=== PATIENT | male | born 1970 | race Caucasian/White ===

== ENCOUNTER → 2019-07-28 10:48 | Outpatient (CLI) | payer OTHER, SELFPAY ==
--- NOTE | 2019-07-28 11:17 | ECG_ITS ---
APPROVED REPORT Exam: Resting ECG HR:55 bpm ECG Measurements Heart Rate 55 AXES QRSd 98 QRS -8 QT 382 T -11 QTc 365 <Conclusion> Atrial fibrillation with slow ventricular response Poor R Wave Progression Abnormal ECG Electronically signed by : Renato Elias, 07/28/2019 11:43:02
--- NOTE | 2019-07-28 11:18 | XR_ITS ---
PROCEDURE: XR CHEST 2V CLINICAL HISTORY: HTN, PREOP COMPARISON: No exams were available for comparison FINDINGS: There is cardiomegaly without failure. He nodules present in the right lung base may be due to a calcified granuloma. The remaining lungs are clear. No acute bony findings. IMPRESSION: Cardiomegaly. No acute finding. Probable granuloma right lung base which may be confirmed with follow-up Dictated by: Jonathon Best MD 07/28/2019 12:15 Electronically signed by Jonathon Best MD in [place] 07/28/2019 12:15
[2019-07-28 11:23] LABS: Basophils % 0.5 % (0.1-2.0); Eosinophils # 0.2 K/mm3 (0.0-0.4); Eosinophils % 3.2 % (0.1-12.0); Hematocrit 41.5 % (42.0-52.0); Hemoglobin 12.6 g/dL (14.1-18.0); Lymphocytes # 1.4 K/mm3 (0.7-4.5); Lymphocytes % 19.1 % (10-50); Mean Corpuscular HGB Conc 30.4 g/dL (31.8-35.4); Mean Corpuscular Hemoglobin 29.9 pg (27.0-31.2); Mean Corpuscular Volume 98.3 fl (80-94); Mean Platelet Volume 8.8 fl (7.4-10.4); Monocytes # 0.5 K/mm3 (0.1-1.0); Monocytes % 6.3 % (1.7-9.3); Neutrophils # 5.1 K/mm3 (1.8-7.8); Neutrophils % 70.9 % (37.0-80.0); Platelet Count 216 K/mm3 (142-424); Red Blood Count 4.22 M/mm3 (4.60-6.20); Red Cell Distribution Width 15.3 % (11.5-17.5); White Blood Count 7.2 K/mm3 (4.8-10.8)
[2019-07-28 12:41] LABS: Hemoglobin A1C 6.7 % (0.0-7.0)
[2019-07-28 13:08] LABS: Anion Gap 10.8 mEq/L (5-15); Blood Urea Nitrogen 20 mg/dL (7-18); Calcium 8.8 mg/dL (8.5-10.1); Carbon Dioxide 31 mmol/L (21.0-32.0); Chloride 101 mmol/L (98-107); Creatinine,Serum 0.94 mg/dL (0.70-1.30); Estimated Glomerular Filt Rate 85 ml/min (>60); GFR (African American) 103 ML/MIN (>60); Glucose 159 mg/dL (74-106); Potassium 3.8 mmoL/L (3.5-5.1); Sodium 139 mmol/L (136-145)
== END ==
PROVIDERS: Visit Provider Orthopaedic Surgery
DX: Z01.818 Encounter for other preprocedural examination (principal); S82.864A Nondisplaced Maisonneuve's fracture of right leg, initial encounter for closed fracture
CPT/HCPCS: 36415; 71046; 80048; 83036; 85025; 93005

== ENCOUNTER → 2019-07-29 15:17 | Outpatient (CLI) | payer OTHER, SELFPAY ==
--- NOTE | 2019-07-29 15:20 | CA_ITS ---
APPROVED REPORT EXAM: Comprehensive 2D, Doppler, and color-flow Echocardiogram Internet Consultant: Lore Lopez RVT Ht: 6 ft 0 in Wt: 350lbs BSA: 2.70 BP: 113/63 mmHg Indications: Atrial Fibrillation, Diabetes, Hypertension,Pre-op ankle surgery 2D Dimensions LVOT 2.70 cm (M/F) 1.5-2.5 M-Mode Dimensions RVDd 2.00 cm (0.9-2.6) LA Diam 5.40 cm (1.9-4.0) LVDd 5.80 cm (3.5-5.7) Ao Diam 2.80 cm (2.0-3.7) LVDs 4.90 cm (3.5-5.7) AV Cusp 2.50 cm (1.5-2.6) IVSd 1.70 cm (0.6-1.1) PWd 1.00 cm (0.6-1.1) EF (Teich) 46.90% FS 24.40% EDV (Teich) 326.00 mL ESV (Teich) 173.00 mL LV Diastology MED E' 6.24 (< 7 cm/sec) LAT E' 18.60 (<10 cm/sec) Aortic Valve AoV Peak [place]. 95.30 (50-130 cm/s) AO Peak GR. 4.00 mmHg Pulmonary Valve PA Accel Time 162.00 (>120 msec) Tricuspid Valve TR P. Velocity 265.00 cm/s Left Ventricle Left atrium is mildly enlarged, left ventricle is mildly dilated, there is borderline left ventricular systolic function, visually estimated ejection fraction 45 to 50% with no regional wall motion abnormality, endocardial surfaces are poorly visualized, diastolic parameters are inconclusive. Right Ventricle Right atrium and right ventricle are normal size and contractility. Aortic Valve Aortic valve is minimally thickened and fibrosed. There is no aortic stenosis aortic insufficiency. Mitral Valve Mitral valve is grossly normal, there is mild mitral regurgitation. Tricuspid Valve Tricuspid valve is grossly normal, there is mild tricuspid regurgitation. Pulmonic Valve Pulmonic valve is poorly visualized. Great Vessels Aortic root is normal size. Pericardium No significant pericardial effusion noted. Conclusion 1. Mildly enlarged left atrium, mildly dilated left ventricle, borderline left ventricular systolic function, visually estimated ejection fraction 45 to 50% with no regional wall motion abnormality. Endocardial surfaces are poorly visualized. 2. Mild mitral and tricuspid regurgitation. 3. No significant pericardial effusion noted. Electronically signed by : Nick Atwood, 07/30/2019 11:06:31
== END ==
PROVIDERS: PCP Internal Medicine; Visit Provider Internal Medicine Cardiovascular Disease
DX: I48.91 Unspecified atrial fibrillation (principal)
CPT/HCPCS: 93306

== ENCOUNTER → 2019-08-11 11:56 | Outpatient (CLI) | payer OTHER, SELFPAY ==
--- NOTE | 2019-08-11 12:00 | XR_ITS ---
PROCEDURE: XR ANKLE RT MIN 3V CLINICAL INDICATION: sp closed reduction rt ankle; cast applied Follow-up closed reduction COMPARISON: XR ANKLE RT 2V from 07/30/2019 FINDINGS: Status post syndesmosis repair of the distal tib fib with 2 anchors in the distal tibia with translucent fixators attached to anchors within the distal fibula. There remains good alignment. The ankle mortise is preserved. Studies obtained through a cast. IMPRESSION: No change status post syndesmosis repair with good alignment Dictated by: Jonathon Best MD 08/11/2019 17:30 Electronically signed by Jonathon Best MD in [place] 08/11/2019 17:30
--- NOTE | 2019-08-11 12:00 | XR_ITS ---
PROCEDURE: XR TIBIA FIBULA RT 2V CLINICAL INDICATION: cast applied; surgery follow up Follow-up surgery/ORIF COMPARISON: XR TIBIA FIBULA RT 2V from 07/27/2019 XR ANKLE RT MIN 3V from 07/27/2019 XR ANKLE RT MIN 3V from 08/11/2019 FINDINGS: Status post syndesmosis repair of the distal tib fib with 2 anchors in the distal tibia with translucent fixators attached to anchors within the distal fibula. There remains good alignment. The ankle mortise is preserved. Studies obtained through a cast.. Mild osteoarthritic changes are present at the knee. Oblique fracture is present involving the proximal shaft of the fibula with good alignment unchanged. No significant callus formation. The posterior distal tibial fracture is once again noted nondisplaced and somewhat less apparent. IMPRESSION: No change status post syndesmosis repair with good alignment Good alignment proximal fibular fracture and posterior distal tibial fracture Dictated by: Jonathon Best MD 08/11/2019 17:36 Electronically signed by Jonathon Best MD in [place] 08/11/2019 17:36
== END ==
PROVIDERS: PCP Internal Medicine; Visit Provider Orthopaedic Surgery
DX: Z48.89 Encounter for other specified surgical aftercare (principal); S82.861A Displaced Maisonneuve's fracture of right leg, initial encounter for closed fracture
CPT/HCPCS: 73590; 73610

== ENCOUNTER → 2019-08-19 11:19 | Outpatient (CLI) | payer OTHER, BC, SELFPAY ==
[2019-08-19 13:32] LABS: Alanine Aminotransferase 28 U/L (12-78); Albumin Level 3.6 gm/dL (3.4-5.0); Alkaline Phosphatase 58 U/L (46-116); Aspartate Amino Transferase 11 U/L (15-37); Bilirubin,Direct 0.1 mg/dL (0.0-0.2); Bilirubin,Indirect 0.3 mg/dL (0.0-0.9); Bilirubin,Total 0.4 mg/dL (0.2-1.0); Free Thyroxine Index 3.4 ug/dL (5.93-13.13); T4 (Thyroxine) 9.8 ug/dl (4.7-13.3); Thyroid Stimulating Hormone 3.25 uIU/ml (0.358-3.740); Total Protein,Serum 6.8 gm/dL (6.4-8.2); Triiodothryronine (T3) Uptake 35 % (31-39)
== END ==
PROVIDERS: Visit Provider Internal Medicine Cardiovascular Disease
DX: E11.9 Type 2 diabetes mellitus without complications (principal); I10 Essential (primary) hypertension; R94.31 Abnormal electrocardiogram [ECG] [EKG]; S82.864D Nondisplaced Maisonneuve's fracture of right leg, subsequent encounter for closed fracture with routine healing; Z79.899 Other long term (current) drug therapy; Z79.84 Long term (current) use of oral hypoglycemic drugs
CPT/HCPCS: 36415; 80076; 84436; 84443; 84479

== ENCOUNTER → 2019-09-08 12:33 | Outpatient (CLI) | payer OTHER, SELFPAY ==
--- NOTE | 2019-09-08 12:38 | XR_ITS ---
PROCEDURE: XR ANKLE RT MIN 3V CLINICAL INDICATION: OUT OF CAST follow-up ORIF distal tib fib COMPARISON: XR ANKLE RT MIN 3V from 07/27/2019 XR TIBIA FIBULA RT 2V from 08/11/2019 FINDINGS: No change status post ORIF distal tib fib syndesmosis with fixating screws at the distal tib fib. The ankle mortise is preserved. There are small calcific densities at the tip of the medial and lateral malleolar region. IMPRESSION: Good alignment status post syndesmosis repair of the distal tib fib Dictated by: Jonathon Best MD 09/08/2019 16:16 Electronically signed by Jonathon Best MD in [place] 09/08/2019 16:16
== END ==
PROVIDERS: PCP Internal Medicine; Visit Provider Orthopaedic Surgery
DX: S82.863A Displaced Maisonneuve's fracture of unspecified leg, initial encounter for closed fracture (principal); Z09 Encounter for follow-up examination after completed treatment for conditions other than malignant neoplasm
CPT/HCPCS: 73610

== ENCOUNTER 2019-09-08 13:39 | Outpatient (RCR) | payer OTHER, BC, SELFPAY | END 2019-09-08 14:00 | disposition home or self-care (01) | LOC: PT 13:39 | PROVIDERS: Visit Provider Orthopaedic Surgery | DX: S82.864D Nondisplaced Maisonneuve's fracture of right leg, subsequent encounter for closed fracture with routine healing (principal) | CPT/HCPCS: 97760 ==

== ENCOUNTER → 2019-10-13 13:24 | Outpatient (CLI) | payer OTHER, BC, SELFPAY ==
--- NOTE | 2019-10-13 13:30 | XR_ITS ---
PROCEDURE: XR TIBIA FIBULA RT 2V CLINICAL INDICATION: Closed red/fix inferior tibiofibular syndesmosis Follow-up fracture COMPARISON: XR TIBIA FIBULA RT 2V from 07/27/2019 XR TIBIA FIBULA RT 2V from 08/11/2019 XR ANKLE RT MIN 3V from 08/11/2019 XR ANKLE RT MIN 3V from 10/13/2019 FINDINGS: Nondisplaced fracture of the proximal fibula once again noted. There is some minimal callus formation noted at the fracture site. Status post syndesmotic repair at the distal tib fib region. The ankle mortise is preserved. There are mild degenerative changes at the ankle joint. A small ossification is developing at the medial aspect of the ankle joint. Posterior distal tibial fracture noted with good alignment. The IMPRESSION: Good alignment status post closed reduction syndesmotic repair distal tib fib with healing fracture of the proximal fibula and posterior distal tibia Dictated by: Jonathon Best MD 10/13/2019 15:55 Electronically signed by Jonathon Best MD in [place] 10/13/2019 15:56
== END ==
PROVIDERS: PCP Internal Medicine; Visit Provider Orthopaedic Surgery
DX: Z09 Encounter for follow-up examination after completed treatment for conditions other than malignant neoplasm (principal); S82.864D Nondisplaced Maisonneuve's fracture of right leg, subsequent encounter for closed fracture with routine healing
CPT/HCPCS: 73590; 73610

== ENCOUNTER → 2019-11-24 13:06 | Outpatient (CLI) | payer OTHER, SELFPAY ==
--- NOTE | 2019-11-24 13:10 | XR_ITS ---
PROCEDURE: XR ANKLE RT MIN 3V CLINICAL INDICATION: sp closed reduction right ankle, dos 07/29/19 COMPARISON: XR ANKLE RT MIN 3V from 07/27/2019 XR ANKLE RT MIN 3V from 08/11/2019 XR ANKLE RT MIN 3V from 09/08/2019 FINDINGS: Reduction screws are seen in the distal tibia and fibula. There is no significant change. There is mild osteoarthritis at the tibiotalar joint space. Well-corticated bone densities are seen in the soft tissues inferior to the malleoli. There is mild bimalleolar soft tissue swelling. Degenerative plantar and dorsal posterior calcaneal spurring are noted his in IMPRESSION: Anatomical positioning post surgery. No acute findings. Dictated by: Cabrera Bentley 11/24/2019 13:49 Electronically signed by Cabrera Bentley in [place] 11/24/2019 13:49
== END ==
PROVIDERS: PCP Internal Medicine; Visit Provider Orthopaedic Surgery
DX: S82.864D Nondisplaced Maisonneuve's fracture of right leg, subsequent encounter for closed fracture with routine healing (principal); Z09 Encounter for follow-up examination after completed treatment for conditions other than malignant neoplasm
CPT/HCPCS: 73610

== ENCOUNTER 2020-01-10 16:00 | Outpatient (RCR) | payer OTHER, SELFPAY ==
--- NOTE | 2019-09-14 17:23 | HMH.PTOPEV ---
PT Outpatient Evaluation Rehab PT Outpatient Evaluation Start: 09/14/19 16:13 Freq: Status: Active Protocol: Document 09/14/19 16:54 [email or web address] (Rec: 09/14/19 17:22 PDESEROUX [id number]) Electronically Signed By Doug Otero, PT 09/14/19 16:54 Outpatient Therapy Subjective History Subjective History Pt. is a 49 year old male who presents to outpatient PT with complaints of subacute and constant R ankle/calf/ft. P! s/p closed reduction and fixation of inferior tibiafibular jt., RLE on 07/30/19. Pt. reports tripping/falling over a bucket and twisting his ankle during work on 07/27/19. Most recent diagnostic imaging indicates good alignment status post syndesmosis repair of the distal tib fib. Pt. RTMD 10/13. Pt. reports currently off occupational duties, return date TBD. Pt. also reports a Technical Staff Assistant appt. this coming (09/16/19). Current medications include Carvedilol , Losartan, Xarelto, Lisinopril, Apetamin, Glipizide, Pioglitazone, and Valsartan. PMH includes Afib, type II diabetes, HTN, Hyperlipidemia, tonsillectomy, and an adenectomy. Chief Complaint Pain,Stiff,Swelling Symptom Type Ache,Numbness Symptoms Relieved By Rest/Positioning,Ice,Brace/ Support,OTC Meds Symptoms Aggravated By Sitting,Standing,Physical Activity,Walking Prior Functional Limitations None Current Functional Limitations Housework,Dressing,Standing, Sitting,Squatting,Recreation Activity,Walking,Stairs, Balance Symptom Description Constant but Variable Level of pain today (0-10) 5 Pain scale - at its best (0-10) 4 Pain scale - at its worst (0-10) 7 Ankle/Foot Eval Gait Observation General Gait Pattern Observation Antalgic Gait,Wide Based Gait, Decrease Weight Bear (R), Decrease Stride Lngth (L) Assistive Device Ambulation Assistive Device
== END 2020-02-10 16:00 | disposition home or self-care (01) ==
LOC: PT.CARL 16:00
PROVIDERS: Visit Provider Orthopaedic Surgery
DX: S82.864D Nondisplaced Maisonneuve's fracture of right leg, subsequent encounter for closed fracture with routine healing (principal)
CPT/HCPCS: 97010; 97014; 97033; 97035; 97110; 97112; 97116; 97140; 97163; 97164; G0283

== ENCOUNTER → 2020-02-01 12:16 | Outpatient (CLI) | payer OTHER, BC, SELFPAY ==
--- NOTE | 2020-02-01 12:19 | XR_ITS ---
PROCEDURE: XR ANKLE RT MIN 3V CLINICAL INDICATION: sp ORIF RT ankle COMPARISON: XR ANKLE RT MIN 3V from 08/11/2019 XR ANKLE RT MIN 3V from 09/08/2019 XR ANKLE RT MIN 3V from 10/13/2019 FINDINGS: Postsurgical changes are again noted involving the distal tibia and fibula. There is no acute fracture or dislocation. Previously reported fractures of proximal fibula and posterior distal tibia peer to have healed. There are accessory ossicles inferior to the medial and lateral malleoli. Degenerative plantar calcaneal spurring is noted. There is soft tissue swelling over both malleoli. IMPRESSION: No acute findings. Dictated by: Cabrera Bentley 02/01/2020 12:50 Electronically signed by Cabrera Bentley in [facility] 02/01/2020 12:50
== END ==
PROVIDERS: PCP Internal Medicine; Visit Provider Orthopaedic Surgery
DX: Z09 Encounter for follow-up examination after completed treatment for conditions other than malignant neoplasm (principal); S82.86 Maisonneuve's fracture
CPT/HCPCS: 73610

== ENCOUNTER → 2020-02-03 14:02 | Outpatient (CLI) | payer BC, SELFPAY | PROVIDERS: PCP Internal Medicine; Visit Provider Internal Medicine | DX: I48.91 Unspecified atrial fibrillation (principal) | CPT/HCPCS: 93270 ==

== ENCOUNTER → 2020-02-08 12:27 | Outpatient (CLI) | payer BC, SELFPAY ==
--- NOTE | 2020-02-08 12:30 | XR_ITS ---
PROCEDURE: XR SHOULDER RT MIN 2V CLINICAL INDICATION: right shoulder pain COMPARISON: No exams were available for comparison FINDINGS: No fracture, dislocation, lytic change, or blastic change evident. No significant degenerative change. On the axillary view there is a small nodular density along the anterior aspect of the arm possibly due to artifact or a soft tissue calcification. IMPRESSION: No acute finding. Please see above for detail Dictated by: Jonathon Best MD 02/08/2020 13:22 Electronically signed by Jonathon Best MD in [facility] 02/08/2020 13:22
== END ==
PROVIDERS: PCP Internal Medicine; Visit Provider Orthopaedic Surgery
DX: M25.511 Pain in right shoulder (principal)
CPT/HCPCS: 73030

== ENCOUNTER → 2020-02-11 09:38 | Outpatient (CLI) | payer BC, SELFPAY ==
--- NOTE | 2020-02-11 09:38 | MR_ITS ---
PROCEDURE: MR SHOULDER RT WO CON CLINICAL INDICATION: right shoulder pain/ evaluate for rotator cuff tea Right shoulder pain, recent fall with injury and pain COMPARISON: XR SHOULDER RT MIN 2V from 02/08/2020 TECHNIQUE: Routine multiplanar multi echo sequences are performed without gadolinium enhancement. FINDINGS: Hypertrophic changes are present at the acromioclavicular joint with some impingement upon the musculotendinous junction of the supraspinatus tendon. There is moderate thickening with increased T2 signal involving the supraspinatus tendon consistent with tendinopathy/tendinosis. There is a small focal area of increased T2 signal distally and could be due to small tear. A complete tear is not identified. A full-thickness tear is not identified. The infraspinatus tendon has an unremarkable appearance as does the teres minor tendon. There is also thickening of the subscapularis tendon. The bicipital tendon appears to be in place. No obvious labral tear. Motion artifact obscures fine detail. Small amount of fluid is present in the subcoracoid region. IMPRESSION: Tendinopathy/tendinosis of the supraspinatus and subscapularis tendons with suspected partial tear of the distal aspect of the supraspinatus tendon. No evidence of full-thickness tear. There is mild impingement upon the musculotendinous junction of the supraspinatus tendon. Subcoracoid bursitis Dictated by: Jonathon Best MD 02/15/2020 11:02 Electronically signed by Jonathon Best MD in [facility] 02/15/2020 11:02
== END ==
PROVIDERS: PCP Internal Medicine; Visit Provider Orthopaedic Surgery
DX: M25.511 Pain in right shoulder (principal)
CPT/HCPCS: 73221

== ENCOUNTER → 2020-02-15 08:03 | Outpatient (CLI) | payer BC, SELFPAY | PROVIDERS: PCP Internal Medicine; Visit Provider Orthopaedic Surgery | DX: M25.511 Pain in right shoulder (principal) ==

== ENCOUNTER → 2020-02-21 09:09 | Outpatient (CLI) | payer BC, SELFPAY ==
--- NOTE | 2020-02-21 09:15 | CT_ITS ---
PROCEDURE: CT ABDOMEN PELVIS WO/W CON CLINICAL INDICATION: HEMATURIA COMPARISON: No exams were available for comparison TECHNIQUE: IV Contrast: 75ML OPTIRAY 350 Oral Contrast none Axial images obtained with sagittal and coronal reformats. All CT scans at the facility use one or more dose reduction, viz: automated exposure control, ma/kV adjustment per patient size (including targeted exams where dose is matched to indication, i.e. head), or iterative reconstruction technique. FINDINGS: LOWER THORAX: No acute finding ABDOMEN & PELVIS: The liver, spleen, pancreas, and gallbladder has an unremarkable appearance. There are bilateral adrenal nodules measuring 2.8 cm on the right and 2 cm on the left consistent with adenomas. There is a 7 mm stone in the upper pole of the right kidney.. There is a 5 x 2 mm stone in the proximal right ureter just distal to the ureteropelvic junction. There is no hydronephrosis. No renal mass. The urinary bladder has an unremarkable appearance. No intestinal obstruction or free air. No evidence of appendicitis or diverticulitis. There is scattered small mesenteric lymph nodes in the central mesenteries with faint increased density of the central mesenteric fat. Tiny umbilical hernia containing fat is noted. No acute bony anomalies. There are degenerative changes in the lumbar spine and there is mild sclerosis of the SI joints left greater than right. There is scattered small nodes in the inguinal region IMPRESSION: 1. Right nephrolithiasis. 5 x 2 mm nonobstructing proximal right ureteral stone just distal to the ureteropelvic junction 2. Talia mesenteries with scattered small mesenteric lymph nodes. This is nonspecific and could be seen with mesenteric adenitis/panniculitis, adjacent inflammation, idiopathic, cirrhosis, or neoplasm. Follow-up may confirm stability. 3. Bilateral adrenal adenomas Dictated by: Jonathon Best MD 02/22/2020 06:28 Electronically signed by Jonathon Best MD in [place] 02/22/2020 06:28
[2020-02-21 09:44] LABS: Chloride 98 mmol/L (98-107); Potassium 3.9 mmoL/L (3.5-5.1); Sodium 139 mmol/L (136-145)
[2020-02-21 09:47] LABS: Anion Gap 13.9 mEq/L (5-15); Blood Urea Nitrogen 18 mg/dl (9-20); Calcium 9.6 mg/dl (8.4-10.2); Carbon Dioxide 31 mmol/L (22.0-30.0); Estimated Glomerular Filt Rate 103 ml/min (>60); GFR (African American) 124 ML/MIN (>60); Glucose 167 mg/dl (74-100)
== END ==
PROVIDERS: PCP Internal Medicine; Visit Provider Internal Medicine
DX: I10 Essential (primary) hypertension; R31.9 Hematuria, unspecified
CPT/HCPCS: 36415; 74178; 80048; Q9967

== ENCOUNTER → 2020-03-13 14:16 | Outpatient (CLI) | payer BC, SELFPAY ==
--- NOTE | 2020-03-13 14:22 | CT_ITS ---
PROCEDURE: CT ABDOMEN PELVIS WO CON CLINICAL INDICATION: CALCULUS OF URETER Follow-up right ureteral stone COMPARISON: CT ABDOMEN PELVIS WO/W CON from 02/21/2020 TECHNIQUE: Axial images obtained with sagittal and coronal reformats. All CT scans at the facility use one or more dose reduction, viz: automated exposure control, ma/kV adjustment per patient size (including targeted exams where dose is matched to indication, i.e. head), or iterative reconstruction technique. FINDINGS: LOWER THORAX: No acute finding ABDOMEN & PELVIS: The liver, spleen, and pancreas have an unremarkable appearance. There is a small gallstone present. There is bilateral adrenal enlargement with a 2.7 cm nodule the both the right adrenal gland consistent with an adenoma and a 2 cm nodule of the left adrenal gland consistent with an adenoma. Right nephrolithiasis is once again noted with 2 small stones in the upper pole of the right kidney each measuring 4 mm. There is a right proximal ureteral stone once again noted not significantly changed. This is at the ureteropelvic junction and measures approximately 4 mm. The right renal pelvis is slightly more prominent compared to the previous study but does still not appear dilated. No distal ureteral calculi are evident. Unremarkable appendix. No intestinal obstruction or free air. There are small bilateral inguinal hernias containing fat and there is a small lymph node in the right external iliac region which measures 2.2 cm. This is not significantly changed. The central mesenteric fat does not appear as dense as the previous exam. IMPRESSION: 1. No change in the right nephrolithiasis and a 4 mm proximal right ureteral stone just distal to the ureteropelvic junction. The right renal pelvis appears slightly more prominent but does still not appear dilated 2. No change bilateral adrenal adenomas Dictated by: Jonathon Best MD 03/13/2020 17:52 Electronically signed by Jonathon Best MD in [facility] 03/13/2020 17:52
== END ==
PROVIDERS: PCP Internal Medicine; Visit Provider Urology
DX: N20.1 Calculus of ureter (principal); N13.2 Hydronephrosis with renal and ureteral calculous obstruction
CPT/HCPCS: 74176

== ENCOUNTER 2020-03-13 16:00 | Outpatient (RCR) | payer BC, SELFPAY ==
--- NOTE | 2020-03-02 18:09 | HMH.PTOPEV ---
PT Outpatient Evaluation Rehab PT Outpatient Evaluation Start: 03/02/20 16:42 Freq: Status: Active Protocol: Document 03/02/20 16:42 [email or web address] (Rec: 03/02/20 18:09 PDESEROUX [id number]) Electronically Signed By Doug Otero, PT 03/02/20 16:42 Outpatient Therapy Subjective History Subjective History Pt. is a 49 year old male who presents to outpatient PT with complaints of chronic and constant anterior RUE shldr. P! of traumatic onset since 07/27/20 . Pt. reports reaching out and grabbing ahold of a railing w / RUE after tripping/falling over a bucket and feeling a pop, and then landing R shldr. on 07/27/20. Pt. reports a lot of symptom relief post cortisone injections. Recent diagnostic imaging positive for tendinopathy of the supraspinatus and subscapularis tendons with suspected partial tear of the distal aspect of the supraspinatus tendon. Recent diagnostic imaging also positive for a mild impingement upon the musculotendinous junction of the supraspinatus tendon, and subcoracoid bursitis. Pt. RTMD (ortho) 5 wks. from 02/24/20 . Pt. reports currently wearing a heart monitor for 30 days. Pt. also reports currently seeing a specialist for his active Nephrolithiasis . Current medications include Carvedilol, Losartan, Xarelto, Lisinopril, Apetamin, Glipizide, Pioglitazone, and Valsartan. PMH includes Afib, type II diabetes, HTN, Hyperlipidemia, tonsillectomy, current active Nephrolithiasis, and an adenectomy. Chief Complaint Pain Symptom Type Sharp Symptoms Relieved By Rest/Positioning Symptoms Aggravated By
== END 2020-04-20 15:30 | disposition home or self-care (01) ==
LOC: PT.CARL 16:00
PROVIDERS: PCP Internal Medicine; Visit Provider Orthopaedic Surgery
DX: M25.511 Pain in right shoulder (principal); M75.41 Impingement syndrome of right shoulder; M75.111 Incomplete rotator cuff tear or rupture of right shoulder, not specified as traumatic
CPT/HCPCS: 97010; 97014; 97033; 97035; 97110; 97140; 97163; G0283

== ENCOUNTER → 2020-04-25 12:52 | Outpatient (CLI) | payer OTHER, SELFPAY ==
--- NOTE | 2020-04-25 13:23 | XR_ITS ---
PROCEDURE: XR ANKLE RT MIN 3V CLINICAL INDICATION: sp Closed reduction/ fixation of inferior tibiofib COMPARISON: XR ANKLE RT MIN 3V from 09/08/2019 XR ANKLE RT MIN 3V from 10/13/2019 XR ANKLE RT MIN 3V from 11/24/2019 XR ANKLE RT MIN 3V from 02/01/2020 FINDINGS: Reduction screws are again noted within the distal tibial and fibular metadiaphysis. Ankle mortise is intact. Soft tissues are edematous. There are multiple, smooth less than 5 millimeter ossicles inferior to the tips of the bimalleolar bony structures. There is no acute fracture or dislocation. Small calcaneal spurs are demonstrated IMPRESSION: Stable postoperative changes as above Dictated by: Jean Marie Rodriguez 04/25/2020 13:43 Electronically signed by Jean Marie Rodriguez in [facility] 04/25/2020 13:43
== END ==
PROVIDERS: PCP Internal Medicine; Visit Provider Orthopaedic Surgery
DX: Z09 Encounter for follow-up examination after completed treatment for conditions other than malignant neoplasm (principal); S82.864D Nondisplaced Maisonneuve's fracture of right leg, subsequent encounter for closed fracture with routine healing
CPT/HCPCS: 73610

== ENCOUNTER → 2020-06-15 10:34 | Outpatient (CLI) | payer OTHER, BC, SELFPAY ==
--- NOTE | 2020-06-15 11:03 | XR_ITS ---
PROCEDURE: XR CHEST 2V CLINICAL HISTORY: on amio therapy Heart disease COMPARISON: CR XR CHEST 2V from 07/28/2019 FINDINGS: The cardiomediastinal silhouette and pulmonary vascularity are within normal limits. The lungs are clear without infiltrates, suspicious nodules, or pleural effusions. No acute bony abnormalities. IMPRESSION: No acute findings. Dictated b Jonathon Best MD 06/15/2020 11:44 Jonathon Best MD in [place] 06/15/2020 11:44
[2020-06-15 11:40] LABS: Alanine Aminotransferase 33 U/L (12-78); Alkaline Phosphatase 50 U/L (38-126); Aspartate Amino Transferase 27 U/L (17-59); Bilirubin,Direct 0.1 mg/dl (0.0-0.4); Bilirubin,Indirect 0.5 mg/dL (0.0-0.9); Bilirubin,Total 0.6 mg/dl (0.2-1.3); Bilirubin,Unconjugated 0.5 mg/dL (0.0-1.1); Total Protein,Serum 6.6 g/dl (6.3-8.2)
[2020-06-15 11:58] LABS: Triiodothryronine (T3) Uptake 33 % (23.5-40.5)
[2020-06-15 11:59] LABS: Free Thyroxine Index 4.2 ug/dL (5.93-13.13); T4 (Thyroxine) 12.8 ug/dl (5.53-11.0)
[2020-06-15 12:12] LABS: Thyroid Stimulating Hormone 2.05 uIU/mL (0.465-4.68)
== END ==
PROVIDERS: PCP Internal Medicine; Visit Provider Internal Medicine Cardiovascular Disease
DX: I48.91 Unspecified atrial fibrillation (principal); R94.31 Abnormal electrocardiogram [ECG] [EKG]; I10 Essential (primary) hypertension; E11.9 Type 2 diabetes mellitus without complications; G47.33 Obstructive sleep apnea (adult) (pediatric); Z79.899 Other long term (current) drug therapy
CPT/HCPCS: 36415; 71046; 80076; 84436; 84443; 84479

== ENCOUNTER → 2020-07-26 13:56 | Outpatient (CLI) | payer OTHER, SELFPAY ==
--- NOTE | 2020-07-26 14:00 | XR_ITS ---
PROCEDURE: XR ANKLE RT MIN 3V CLINICAL INDICATION: sp ORIF rt ankle one year follow up, dos 07/30/19 COMPARISON: CR XR ANKLE RT MIN 3V from 10/13/2019 CR XR ANKLE RT MIN 3V from 11/24/2019 CR XR ANKLE RT MIN 3V from 02/01/2020 CR XR ANKLE RT MIN 3V from 04/25/2020 FINDINGS: Good alignment status post syndesmotic repair of the distal tib fib with no change in the bony hardware. The ankle mortise appears intact. The talar dome has an unremarkable appearance. A calcific density is present along the medial aspect of the talus distal to the medial malleolar region consistent with an old fracture or ununited ossification center. There is mild hypertrophic change of the distal aspect of the lateral malleolus. IMPRESSION: Postsurgical changes with good alignment. No significant change. Dictated by: Jonathon Best MD 07/26/2020 16:20 Jonathon Best MD in [place] 07/26/2020 16:20
== END ==
PROVIDERS: PCP Internal Medicine; Visit Provider Orthopaedic Surgery
DX: Z09 Encounter for follow-up examination after completed treatment for conditions other than malignant neoplasm (principal); S82.864D Nondisplaced Maisonneuve's fracture of right leg, subsequent encounter for closed fracture with routine healing; M19.071 Primary osteoarthritis, right ankle and foot
CPT/HCPCS: 73610

== ENCOUNTER → 2020-10-12 13:58 | Outpatient (CLI) | payer OTHER, SELFPAY ==
--- NOTE | 2020-10-12 14:06 | XR_ITS ---
PROCEDURE: XR FOOT WT BEARING RT 3V CLINICAL INDICATION: pain COMPARISON: CR FTR3 FOOT-RT-3 VIEWS from 01/20/2015 CR FTR3 FOOT-RT-3 VIEWS from 02/17/2015 FINDINGS: No fracture or dislocation. No lytic or blastic change. There is normal mineralization. There are mild osteoarthritic changes at the 1st MTP joint. There is an area of exostosis along the proximal a medial aspect of the distal phalanx of the great toe. This area of exostosis measures approximately 8 mm not significantly changed. An old fracture involves the proximal aspect of the 4th metatarsal with cortical thickening. There are mild osteoarthritic changes at tarsal bones. IMPRESSION: Mild degenerative changes, no acute finding Dictated by: Jonathon Best MD 10/12/2020 15:23 Jonathon Best MD in [facility] 10/12/2020 15:23
--- NOTE | 2020-10-12 14:06 | XR_ITS ---
PROCEDURE: XR ANKLE WT BEARING RT MIN 3V CLINICAL INDICATION: pain COMPARISON: CR XR ANKLE RT MIN 3V from 11/24/2019 CR XR ANKLE RT MIN 3V from 02/01/2020 CR XR ANKLE RT MIN 3V from 04/25/2020 DX XR ANKLE RT MIN 3V from 07/26/2020 FINDINGS: Status post syndesmotic repair with good alignment. The ankle mortise is preserved. There are mild osteoarthritic changes at the ankle with bony hypertrophy involving the medial aspect the talus. Mild osteoarthritic changes of the ankle. The talar dome has an unremarkable appearance. IMPRESSION: Mild osteoarthritis status post prior syndesmotic repair, no acute finding Dictated by: Jonathon Best MD 10/12/2020 15:40 Jonathon Best MD in [place] 10/12/2020 15:40
--- NOTE | 2020-10-12 14:06 | XR_ITS ---
PROCEDURE: XR TIBIA FIBULA RT 2V CLINICAL INDICATION: pain COMPARISON: CR XR TIBIA FIBULA RT 2V from 07/27/2019 CR XR TIBIA FIBULA RT 2V from 08/11/2019 CR XR TIBIA FIBULA RT 2V from 10/13/2019 FINDINGS: There is a healing fracture involving the proximal shaft of the fibula. Prior ORIF of the distal tib fib with syndesmotic repair. There are mild osteoarthritic changes of the knee joint and ankle. No acute fracture or dislocation evident. IMPRESSION: Healed proximal fibular fracture with good alignment of the distal tib fib with mild osteoarthritis Dictated by: Jonathon Best MD 10/12/2020 15:37 Jonathon Best MD in [facility] 10/12/2020 15:37
== END ==
PROVIDERS: PCP Internal Medicine; Visit Provider Podiatrist
DX: M25.571 Pain in right ankle and joints of right foot (principal); Z87.81 Personal history of (healed) traumatic fracture; Z98.890 Other specified postprocedural states
CPT/HCPCS: 73590; 73610; 73630

== ENCOUNTER → 2020-10-19 16:50 | Outpatient (CLI) | payer OTHER, SELFPAY ==
[2020-10-19 17:38] LABS: Blood Urea Nitrogen 20 mg/dl (9-20); Estimated Glomerular Filt Rate 79 ml/min (>60); GFR (African American) 96 ML/MIN (>60)
== END ==
PROVIDERS: Visit Provider Podiatrist
DX: Z01.818 Encounter for other preprocedural examination (principal); M19.171 Post-traumatic osteoarthritis, right ankle and foot; M25.371 Other instability, right ankle; Z98.890 Other specified postprocedural states; Z87.81 Personal history of (healed) traumatic fracture
CPT/HCPCS: 36415; 82565; 84520

== ENCOUNTER → 2020-11-07 10:19 | Outpatient (CLI) | payer OTHER, SELFPAY ==
--- NOTE | 2020-11-07 10:20 | MR_ITS ---
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 FINDINGS: Artifact present from hardware within the distal tib fib. The tibiofibular ligaments appear intact. PT FL appears intact. There is some thickening of the ATFL which may be due to sprain or partial tear. Small amount fluid is present in the ankle joint. Deltoid ligament fibers are coarse raising the suspicion of partial tear.. The peroneus longus tendon has an abnormal appearance with discontinuity of the normal ligamentous fibers at the level of the distal calcaneus. The tendon distal to the calcaneal level and proximal to the metatarsal level shows heterogeneous signal intensity. A high-grade tendon tear/possible split tear at this region is suspected. Cannot exclude the possibility of a complete tear. Please correlate with clinical exam. The peroneus brevis tendon appears unremarkable. The posterior tibialis, flexor hallucis longus and flexor digitorum longus and Achilles tendon have an unremarkable appearance as do the anterior extensor tendons. There are mild osteoarthritic changes of the talonavicular and navicular cuneiform joint. The plantar fascia appears unremarkable. There is focal increased T2 signal at the base of the 3rd metatarsal nonspecific. There is also a small amount of increased T2 signal at the subchondral region of the talar dome laterally IMPRESSION: 1. Artifact from hardware within the distal tib fib. The ankle mortise is preserved and the tibiofibular ligaments have an unremarkable appearance. 2. Suspect sprain or partial tear of the ATFL and deltoid ligaments. 3. High-grade tendon tear/split tear suspected of the peroneus longus tendon between the calcaneus and the metatarsal region. Dictated by: Jonathon Best MD 11/13/2020 11:51 Jonathon Best MD in [place] 11/13/2020 11:51
== END ==
PROVIDERS: PCP Internal Medicine; Visit Provider Podiatrist
DX: M19.171 Post-traumatic osteoarthritis, right ankle and foot (principal); M25.371 Other instability, right ankle; Z87.81 Personal history of (healed) traumatic fracture; Z98.890 Other specified postprocedural states
CPT/HCPCS: 73723; A9576

== ENCOUNTER → 2020-12-21 14:56 | Outpatient (CLI) | payer OTHER, BC, SELFPAY ==
--- NOTE | 2020-12-21 15:06 | XR_ITS ---
PROCEDURE: XR CHEST 2V CLINICAL HISTORY: amiodarone therapy COMPARISON: CR XR CHEST 2V from 07/28/2019 CR XR CHEST 2V from 06/15/2020 FINDINGS: The cardiomediastinal silhouette and pulmonary vascularity are within normal limits. The lungs are clear without infiltrates, suspicious nodules, or pleural effusions. There are no chronic interstitial changes seen. No acute bony abnormalities. IMPRESSION: No acute findings. Dictated by: Dr. Rony Meadows MD 12/21/2020 17:22 Dr. Rony Meadows MD in [place] 12/21/2020 17:22
[2020-12-21 15:48] LABS: Basophils % 0.7 % (0.1-2.0); Eosinophils # 0.3 K/mm3 (0.0-0.4); Eosinophils % 4.4 % (0.1-12.0); Hematocrit 44.4 % (42.0-52.0); Hemoglobin 14.3 g/dL (14.1-18.0); Lymphocytes # 1.6 K/mm3 (0.7-4.5); Lymphocytes % 29.4 % (10-50); Mean Corpuscular HGB Conc 32.1 g/dL (31.8-35.4); Mean Corpuscular Hemoglobin 30.2 pg (27.0-31.2); Mean Platelet Volume 7.7 fl (7.4-10.4); Monocytes # 0.4 K/mm3 (0.1-1.0); Monocytes % 6.5 % (1.7-9.3); Neutrophils # 3.3 K/mm3 (1.8-7.8); Platelet Count 193 K/mm3 (142-424); Red Blood Count 4.72 M/mm3 (4.60-6.20); Red Cell Distribution Width 14.8 % (11.5-17.5); White Blood Count 5.5 K/mm3 (4.8-10.8)
[2020-12-21 16:47] LABS: Alanine Aminotransferase 42 U/L (12-78); Alkaline Phosphatase 60 U/L (38-126); Aspartate Amino Transferase 39 U/L (17-59); Bilirubin,Direct 0.2 mg/dl (0.0-0.4); Bilirubin,Indirect 0.3 mg/dL (0.0-0.9); Bilirubin,Total 0.5 mg/dl (0.2-1.3); Bilirubin,Unconjugated 0.3 mg/dL (0.0-1.1)
[2020-12-21 16:48] LABS: Albumin Level 4.4 g/dl (3.5-5.0); Total Protein,Serum 7.6 g/dl (6.3-8.2)
[2020-12-21 17:05] LABS: Free T4 (Free Thyroxine) 1.33 ng/dl (0.78-2.19)
[2020-12-21 17:16] LABS: Alanine Aminotransferase 43 U/L (12-78); Albumin Level 4.6 g/dl (3.5-5.0); Albumin/Globulin Ratio 1.5 (1.1-1.8); Alkaline Phosphatase 70 U/L (38-126); Anion Gap 10.8 mEq/L (5-15); Aspartate Amino Transferase 38 U/L (17-59); Bilirubin,Total 0.4 mg/dl (0.2-1.3); Blood Urea Nitrogen 20 mg/dl (9-20); Calcium 9.7 mg/dl (8.4-10.2); Carbon Dioxide 32 mmol/L (22.0-30.0); Chloride 101 mmol/L (98-107); Estimated Glomerular Filt Rate 89 ml/min (>60); GFR (African American) 108 ML/MIN (>60); Globulin 3.1 g/dL (1.3-3.2); Glucose 124 mg/dl (74-100); Potassium 3.8 mmoL/L (3.5-5.1); Sodium 140 mmol/L (136-145); Total Protein,Serum 7.7 g/dl (6.3-8.2)
[2020-12-21 17:19] LABS: Thyroid Stimulating Hormone 2.51 uIU/mL (0.465-4.68)
== END ==
PROVIDERS: Podiatrist; PCP Internal Medicine; Visit Provider Internal Medicine Cardiovascular Disease
DX: I48.91 Unspecified atrial fibrillation (principal); R94.31 Abnormal electrocardiogram [ECG] [EKG]; E11.9 Type 2 diabetes mellitus without complications; I10 Essential (primary) hypertension; M19.171 Post-traumatic osteoarthritis, right ankle and foot; M25.371 Other instability, right ankle; G47.33 Obstructive sleep apnea (adult) (pediatric); Z79.899 Other long term (current) drug therapy; Z79.84 Long term (current) use of oral hypoglycemic drugs
CPT/HCPCS: 36415; 71046; 80053; 80076; 82565; 84439; 84443; 84520; 85025

== ENCOUNTER → 2021-01-08 14:52 | Outpatient (CLI) | payer OTHER, SELFPAY ==
[2021-01-09 08:42] LABS: Coronavirus 19 IgG Antibody Positive (Negative)
[2021-01-09 08:44] LABS: Coronavirus 19 IgM Antibody Positive (Negative)
== END ==
PROVIDERS: Visit Provider Podiatrist
DX: Z01.812 Encounter for preprocedural laboratory examination (principal)
CPT/HCPCS: 36415; 86328

== ENCOUNTER → 2021-01-09 13:14 | Outpatient (CLI) | payer OTHER, SELFPAY | PROVIDERS: PCP Internal Medicine; Visit Provider Podiatrist | DX: Z01.812 Encounter for preprocedural laboratory examination (principal); Z11.52 Encounter for screening for COVID-19; S82.863A Displaced Maisonneuve's fracture of unspecified leg, initial encounter for closed fracture | CPT/HCPCS: U0003 ==

== ENCOUNTER 2021-01-10 06:14 | Day surgery (SDC) | payer OTHER, SELFPAY ==
[2021-01-08 16:26] VITALS: BMI 50.1
[2021-01-10] VITALS (14 sets, daily range): BP systolic 111–155; BP diastolic 52–91; PULSE 53–71; RESP 12–18; TEMP 36.3–36.7; O2SAT 93–95
--- NOTE | 2021-01-10 10:13 | XR_ITS ---
PROCEDURE: XR ANKLE RT 2V CLINICAL INDICATION: RIGHT TENDON REPAIR IN OR COMPARISON: No exams were available for comparison FINDINGS: Fluoroscopy time: 57 seconds Status post 3 additional translucent fixator placement and anchor screws at the distal tibia and fibula. There is good alignment on the AP view. IMPRESSION: C-arm utilized for ankle surgery. Dictated by: Jonathon Best MD 01/10/2021 17:22 Jonathon Best MD in [place] 01/10/2021 17:22
--- NOTE | 2021-01-10 10:15 | XR_ITS ---
PROCEDURE: XR ANKLE RT MIN 3V CLINICAL INDICATION: post op ankle Pain, follow-up surgery COMPARISON: CR XR ANKLE RT MIN 3V from 04/25/2020 DX XR ANKLE RT MIN 3V from 07/26/2020 CR XR ANKLE WT BEARING RT MIN 3V from 10/12/2020 CR XR ANKLE RT 2V from 01/10/2021 FINDINGS: Good alignment status post ORIF distal tib fib with additional translucent fixators and anchors at the medial and lateral malleolar region compared to the previous exam. Posterior splint is in place. IMPRESSION: Good alignment postsurgical changes right ankle Dictated by: Jonathon Best MD 01/10/2021 16:55 Jonathon Best MD in [place] 01/10/2021 16:55
--- NOTE | 2021-01-10 10:54 | P.PN_ITS ---
[facility] Anesthesia Checklist - Structural Data Admitted From: Home Planned Operative Procedure/s: orif r ankle Consent for Planned Operative Procedure(s) Verified: Yes - Additional verifications Anesthesia Reactions: No Hx Blood Transfusions: No Blood Transfusion Reaction: No - Airway Assessment C-Spine Mobility Assessed: Yes TMJ Mobility Assessed: Yes Dentition: Poor Dentition - Neurological Assessment Level of Consciousness: Awake, Alert, Appropriate - Anesthesia Plan Anesthesia Risk discussed: Yes Anesthesia Plan: Verified ASA Class: III Anesthesia Type: General w/block [facility] History I have reviewed the patient's past medical history: Yes Medical History: Reports:: Atrial Fibrillation, Diabetes Mellitus Type 2, Hypertension Denies:: Cancer, Diabetes Mellitus Type 1, Internal Pacemaker, MRSA, Seizures *Have you ever received a pneumonia vaccine?: Yes *Have you received a flu vaccine this season?: No Other Medical History: Reports: Arthritis. Denies: Blood Transfusion Reaction Anesthesia experience/problems:: none Laterality Cases: Right: Other, Bilateral: Tonsillectomy Other Surgeries: Yes: Colonoscopy, Other (R ankle/foot). No: Pacemaker Amputation: No Fractures: No - *Social History Last grade of school completed: High school graduate Smoking Status: Never smoker Tobacco Type: smokeless tobacco # Packs/Day (cigarettes): 0 Alcohol Intake: never Alcohol Intake Frequency:: a few times a week Substance Use Type: denies use *Occupational Status:: employed Housing: house Household Members: spouse *Travel in the last 8 weeks: None Family Hx:: Diabetes, Hypertension
--- NOTE | 2021-01-10 10:55 | P.PN_ITS ---
[facility] Anesthesia Record Part I Intake, IV Amount: 1,500 Estimated blood loss (mL): 0 Urine output (mL): 0 Blood Pressure: 138/91 SaO2: 93 Pulse Rate: 71 Respiratory Rate: 12 Temperature: 98 F Patient is:: Awake, Stable Stable to PACU at:: 10:50
--- NOTE | 2021-01-10 11:16 | HMH.OPNOTE ---
Date of procedure: 01/10/21 Pre-op Diagnosis:: 1. Right ankle instability 2. Right syndesmosis instability 3. Right peroneal tendon tear 4. Right ATFL tear 5. Right deltoid ligament partial tear 6. Right equinus 7. Right ankle synovitis Post-op Diagnosis:: Same Procedure performed:: 1. Right peroneal tendon x2 debridement and repair 2. Right modified Brostrum ankle ligament stabilization 3. Right deltoid ligament repair 4. Right syndemsosis ORIF 5. Right ankle synovectomy 6. Right gastroc recession 7. Right application of graft 8. Right application of posterior splint Surgeon:: Rose Vazquez DPM RESOLUTION EXPERT:: Gilberto Davison Anesthesia: GETA, regional (right popliteal saph block) Estimated blood loss (mL): 30 Clinical Note:: MRI RIGHT ANKLE, 11/07/20: TECHNIQUE: Routine multiplanar multi echo sequences are performed without and with gadolinium enhancement. FINDINGS: Artifact present from hardware within the distal tib fib. The tibiofibular ligaments appear intact. PT FL appears intact. There is some thickening of the ATFL which may be due to sprain or partial tear. Small amount fluid is present in the ankle joint. Deltoid ligament fibers are coarse raising the suspicion of partial tear. The peroneus longus tendon has an abnormal appearance with discontinuity of the normal ligamentous fibers at the level of the distal calcaneus. The tendon distal to the calcaneal level and proximal to the metatarsal level shows heterogeneous signal intensity. A high-grade tendon tear/possible split tear at this region is suspected. Cannot exclude the possibility of a complete tear. Please correlate with clinical exam. The peroneus brevis tendon appears unremarkable. The posterior tibialis, flexor hallucis longus and flexor digitorum longus and Achilles tendon have an unremarkable appearance as do the anterior extensor tendons. There are mild osteoarthritic changes of the talonavicular and navicular cuneiform joint. The plantar fascia appears unremarkable. There is focal increased T2 signal at the base of the 3rd metatarsal nonspecific. There is also a small amount of increased T2 signal at the subchondral region of the talar dome laterally. IMPRESSION: 1. Artifact from hardware within the distal tib fib. The ankle mortise is preserved and the tibiofibular ligaments have an unremarkable appearance. 2. Suspect sprain or partial tear of the ATFL and deltoid ligaments. 3. High-grade tendon tear split tear suspected of the peroneus longus tendon between the calcaneus and the metatarsal region. I reviewed and discussed the MRI with patient. We discussed his chronic pathology, and that conservative treatment has been mostly exhausted. Conservative care has included: Modification of shoe gear, modification of activity, ice, elevation, NSAIDs, stretching, physical therapy, bracing/strapping without relief of symptoms. Patient's goals are to walk with his family or be able to go to the mall or amusement park from time to time. Patient is unable to stand or walk for long periods of time. He reports weight gain secondary to inactivity. Patient states the bracing does not help and the pressure causes discomfort and restriction in ankle motion. This is also a workers comp case and he understands we will need to get insurance approval. We discussed perioperative plan including 6-8 weeks nonweightbearing then transition to PPWB in boot with physical therapy. We discussed patient's diabetes and risk of increased infection or wound complications because of diabetes and revisional nature of the surgery. Patient reports last hemoglobin A1c 5.9%. We did briefly discuss Charcot, no anticipated fracture work and patient does not have peripheral neuropathy secondary to diabetes. Patient does have some decreased nerve sensation on the right at the incision site. Nerve sensation intact and within normal limits to the left lower extremity. He understands he will need medical and cardiac clearance. We discussed DVT/PE and the
[2021-01-10 11:31] LABS: POC Glucose,Bedside 215 (70-110)
--- NOTE | 2021-01-10 13:09 | SUR.PHASEII ---
1235 ZOFRAN 4MG IV GIVEN FOR C/O NAUSEA AND 1236 -PERCOCET 7.5/325MG PO GIVEN FOR C/O PAIN AT 8.
--- NOTE | 2021-01-10 14:33 | P.PN_ITS ---
[facility] Anesthesia Record Part II Discharge Time: 11:50 Destination: [facility] PACU nurse assessment reviewed?: Yes Patient Condition:: Good Anesthesia Complications:: None Swallowing reflex intact?: Yes Cyanosis?: No Blood Pressure: 147/88 Pulse Rate: 60 Temperature: 97.4 F Mental Status: Alert & Oriented Pain level:: 10 Nausea and/or vomitting:: None Intake, IV Amount: 0
[2021-01-10 20:54] LABS: POC Glucose,Bedside 192 (70-110)
== END 2021-01-10 12:48 | disposition home or self-care (01) ==
LOC: OR 06:15
PROVIDERS: PCP Internal Medicine; Visit Provider Podiatrist
PROC: (CPT 27696; principal; 2021-01-10 07:30)
DX: M19.171 Post-traumatic osteoarthritis, right ankle and foot (principal); M25.371 Other instability, right ankle; S86.311A Strain of muscle(s) and tendon(s) of peroneal muscle group at lower leg level, right leg, initial encounter; S93.491A Sprain of other ligament of right ankle, initial encounter; M79.671 Pain in right foot; E11.9 Type 2 diabetes mellitus without complications; Z68.43 Body mass index [BMI] 50.0-59.9, adult; E66.9 Obesity, unspecified; I48.91 Unspecified atrial fibrillation; I10 Essential (primary) hypertension; Z79.899 Other long term (current) drug therapy; Z79.84 Long term (current) use of oral hypoglycemic drugs; Z79.01 Long term (current) use of anticoagulants; M24.471 Recurrent dislocation, right ankle; M62.471 Contracture of muscle, right ankle and foot
CPT/HCPCS: 27696; 27829; 27687; 27658; C5275; 73600; 73610; 76000; 82962; 96374; C1713; C1762; J2405; Q4211

== ENCOUNTER → 2021-03-06 10:47 | Outpatient (CLI) | payer OTHER, SELFPAY ==
--- NOTE | 2021-03-06 10:51 | XR_ITS ---
PROCEDURE: XR ANKLE WT BEARING RT MIN 3V CLINICAL INDICATION: post op Follow-up surgery COMPARISON: DX XR ANKLE RT MIN 3V from 07/26/2020 CR XR ANKLE WT BEARING RT MIN 3V from 10/12/2020 CR XR ANKLE RT MIN 3V from 01/10/2021 CR XR ANKLE RT 2V from 01/10/2021 FINDINGS: The posterior splint has been removed. Status post ORIF distal tib fib with syndesmotic repair with multiple translucent fixators and anchor screws at the distal tibia and fibula. There is good alignment with no obvious orthopedic complication. Mild osteoarthritic changes are present at the ankle joint. IMPRESSION: Good alignment status post ORIF distal tib fib. Dictated by: Jonathon Best MD 03/06/2021 12:52 Jonathon Best MD in [place] 03/06/2021 12:52
== END ==
PROVIDERS: PCP Internal Medicine; Visit Provider Podiatrist
DX: Z98.890 Other specified postprocedural states (principal); M25.571 Pain in right ankle and joints of right foot
CPT/HCPCS: 73610

== ENCOUNTER → 2021-04-30 14:10 | Outpatient (CLI) | payer BC, SELFPAY | PROVIDERS: PCP Internal Medicine; Visit Provider Internal Medicine Cardiovascular Disease | DX: I48.91 Unspecified atrial fibrillation (principal); R94.31 Abnormal electrocardiogram [ECG] [EKG]; I10 Essential (primary) hypertension; E11.9 Type 2 diabetes mellitus without complications; G47.33 Obstructive sleep apnea (adult) (pediatric); Z79.899 Other long term (current) drug therapy; Z79.84 Long term (current) use of oral hypoglycemic drugs | CPT/HCPCS: 93270 ==

== ENCOUNTER → 2021-07-02 12:29 | Outpatient (CLI) | payer OTHER, SELFPAY ==
--- NOTE | 2021-07-02 12:36 | XR_ITS ---
PROCEDURE: XR ANKLE WT BEARING RT MIN 3V CLINICAL INDICATION: post-op Follow-up surgery COMPARISON: CR XR ANKLE WT BEARING RT MIN 3V from 10/12/2020 CR XR ANKLE RT MIN 3V from 01/10/2021 CR XR ANKLE RT 2V from 01/10/2021 CR XR ANKLE WT BEARING RT MIN 3V from 03/06/2021 FINDINGS: There postsurgical changes with prior syndesmotic repair as well as an anchor screw at the lateral malleolar and medial malleolar region. The ankle mortise is preserved. Minimal hypertrophic changes and old avulsion fractures versus ununited ossification centers at the tip the lateral malleolus and medial malleolus unchanged. Talar dome has an unremarkable appearance. Mild osteoarthritic changes at the ankle. IMPRESSION: No change good alignment status post ORIF distal tib fib Dictated by: Jonathon Best MD 07/02/2021 13:09 Jonathon Best MD in [place] 07/02/2021 13:09
== END ==
PROVIDERS: PCP Internal Medicine; Visit Provider Podiatrist
DX: Z98.890 Other specified postprocedural states (principal)
CPT/HCPCS: 73610

== ENCOUNTER 2021-08-07 14:00 | Outpatient (RCR) | payer OTHER, SELFPAY ==
--- NOTE | 2021-03-08 15:43 | HMH.PTOPEV ---
PT Outpatient Evaluation Rehab PT Outpatient Evaluation Start: 03/08/21 13:59 Freq: Status: Active Protocol: Document 03/08/21 13:59 ELVIS (Rec: 03/08/21 15:43 [id number]) Electronically Signed By Doug Otero, PT 03/08/21 13:59 Outpatient Therapy Subjective History Subjective History Pt. is a 50 year old male who presents to outpatient PT clinic w/ complaints of constant and subacute post surgical RLE medial/lateral ankle P! S/P RLE ankle surgical reconstruction(see operative notes for details) on 01/10/21 . Pt. reports he was NWB on RLE for 8 wks. post surgery, states he's been ambulating w/ bilateral axillary crutches( JUAN LUIS) and CAM bt. walker for 2 days now. Pt. reports he is to PWB 25% body weight for the first week, then progress the next wk.(see chart for protocol). Pt. RTMD 04/10/21. Pt. also reports he's been on anti-biotics x 2wks., finishes up tomorrow(03/09/21). Pt. reports this is his second surgery on this ankle for the same pathology, stated the first surgery wasn't where I needed to be, therefore, he was referred to a Specialist. Pt. reports he's been on restricted work duty since he was able to return to work after his first surgery. Pt. reports goals are to ambulate w/ his family at the zoo, amusement park, etc..., quotes , I don't want to be that fat atif who is always sitting down. Current medications include Glipizide, Lisinopril, Carvedilol, Amphetamine, Anti -biotics, and Valsartan. PMH includes a Nephrolithotomy, Hypertension, Atrial Fibrillation, and Type II Diabetes. Chief Compl
== END 2021-08-29 15:40 | disposition home or self-care (01) ==
LOC: PT.CARL 14:00
PROVIDERS: Visit Provider Podiatrist
DX: S86.311D Strain of muscle(s) and tendon(s) of peroneal muscle group at lower leg level, right leg, subsequent encounter (principal); Z98.890 Other specified postprocedural states; M25.371 Other instability, right ankle
CPT/HCPCS: 97010; 97014; 97033; 97035; 97110; 97112; 97116; 97140; 97163; 97164; 97530; G0283

== ENCOUNTER → 2022-08-26 09:37 | Outpatient (CLI) | payer OTHER, SELFPAY ==
--- NOTE | 2022-08-26 09:41 | XR_ITS ---
FINAL REPORT CLINICAL HISTORY: 6 mo f/u right ankle osteoarthritis COMPARISON: 07/02/2021 FINDINGS: RIGHT ANKLE Three views demonstrate no acute fracture or dislocation. There are mild degenerative changes. There is a chronic calcification inferior to the lateral malleolus. Postoperative changes are seen in the distal tibia and fibula. There is plantar calcaneal spur. Soft tissue swelling is noted. IMPRESSION: Degenerative and postoperative changes as above. Reviewed, Interpreted and Dictated by Alfredito Trammell III, MD Transcribed by Pretty Argueta Authenticated and [facility]
== END ==
PROVIDERS: PCP Internal Medicine; Visit Provider Podiatrist
DX: M19.171 Post-traumatic osteoarthritis, right ankle and foot (principal)
CPT/HCPCS: 73610

== ENCOUNTER → 2023-01-13 10:09 | Outpatient (CLI) | payer OTHER, SELFPAY ==
--- NOTE | 2023-01-13 10:14 | XR_ITS ---
FINAL REPORT CLINICAL HISTORY: post-op rt ankle f/u FINDINGS: RIGHT ANKLE Three views of the right ankle were obtained. There are postoperative changes of the distal tibia and fibula. There are mild degenerative changes. There are small calcaneal spurs. There is a chronic calcification inferior to the lateral malleolus. There is soft tissue swelling. IMPRESSION: Postoperative changes of the distal tibia and fibula. Mild degenerative change. Reviewed, Interpreted and Dictated by Alfredito Trammell III, MD Transcribed by Rose Mary Henao Authenticated and [facility]
== END ==
PROVIDERS: PCP Internal Medicine; Visit Provider Podiatrist
DX: M25.571 Pain in right ankle and joints of right foot (principal); Z96.9 Presence of functional implant, unspecified; Z98.890 Other specified postprocedural states
CPT/HCPCS: 73610

== ENCOUNTER 2023-06-23 16:54 | Emergency (ER) | payer BC, SELFPAY ==
[2023-06-23 17:07] VITALS: BP 151/86; PULSE 69; RESP 20; TEMP 36.7; O2SAT 98; BMI 48.8
--- NOTE | 2023-06-23 17:08 | EXP.UTC ---
Discharge Plan Disposition Patient Disposition: Home, Self-Care Condition: Good Prescriptions Prescriptions: New cephalexin 500 mg capsule 500 mg PO QID Qty: 40 0RF mupirocin 2 % ointment 1 applic topical TID 7 Days Qty: 15 0RF No Action lisinopril 40 mg tablet 40 mg PO DAILY Qty: 30 6RF valsartan-hydrochlorothiazide 320-25 mg tablet 1 tab PO DAILY Qty: 30 5RF carvedilol 25 mg tablet 25 mg PO BID rosuvastatin 5 mg tablet 5 mg PO furosemide 20 mg tablet 20 mg PO Ozempic 0.25 mg or 0.5 mg(2 mg/1.5 mL) pen injector 0.25 mg SQ pioglitazone 30 mg tablet 30 mg PO DAILY nifedipine 90 mg tablet extended release 24hr 90 mg PO Patient Comments: TAKE ONE TABLET BY MOUTH EVERY DAY ON an EMPTY stomach Xarelto 20 mg tablet See Rx Instructions .ROUTE .COMPLEX Qty: 30 5RF Dose Instruction: TAKE ONE TABLET BY MOUTH EVERY DAY IN THE EVENING WITH FOOD Rx Instructions: TAKE ONE TABLET BY MOUTH EVERY DAY IN THE EVENING WITH FOOD glipizide 10 tablet extended release 24hr 10 mg PO DAILY Referrals Follow up/Referrals: Marc Lawrence MD [Primary Care Provider] - See instructions Activity Restrictions/Add. Instructions Additional Instructions/Restrictions: Keep the wound clean and dry. Keep a dressing on it if you are going to be getting it dirty. Watch the wound for signs of infection, such as redness, swelling, drainage, fever. etc. Take tylenol or ibuprofen for pain. Follow up with your regular doctor. GO TO THE ER FOR ANY WORSENING SYMPTOMS OR CONCERNS. Clinical Impressions Clinical Impression: Laceration of left thumb, Need for Tdap vaccination Instructions Patient Instructions: DI for Avulsion Laceration (Not Requiring Sutures) Discharge ED Provider: Timothy Ledesma [facility] HPI General Stated complaint: AO08/20 LT thumb lac Time Seen by Provider: 06/23/23 17:08 History of Present Illness Provider Complaint: He states that he was filleting fish yesterday when he slipped and cut some of the skin off the tip of his left thumb. His tetanus immunization is not up to date. It has been over 24 hours since he cut his finger. Related Data Home Medications Medication Instructions Recorded Confirmed glipizide 10 mg tablet, extended 10 mg PO DAILY Diabetes 07/27/19 01/13/23 release 24 hr carvedilol 25 mg tablet 25 mg PO BID 04/26/21 01/13/23 pioglitazone 30 mg tablet 30 mg PO DAILY 04/26/21 01/13/23 furosemide 20 mg tablet 20 mg PO 07/02/21 01/13/23 rosuvastatin 5 mg tablet 5 mg PO 07/02/21 01/13/23 nifedipine 90 mg tablet,extended 90 mg PO 02/25/22 01/13/23 release 24 hr semaglutide 0.25 mg or 0.5 mg (2 0.25 mg SQ 08/26/22 01/13/23 mg/1.5 mL) subcutaneous pen injector (Oxyrane [facility]) Previous Rx's Medication Instructions Recorded lisinopril 40 mg tablet 40 mg PO DAILY blood pressure #30 03/16/20 tabs valsartan 320 1 tab PO DAILY htn #30 tabs 03/16/20 mg-hydrochlorothiazide 25 mg tablet rivaroxaban 20 mg tablet (Xarelto) See Rx Instructions .Route 05/09/22 .COMPLEX #30 tabs cephalexin 500 mg capsule 500 mg PO QID #40 caps 06/23/23 mupirocin 2 % topical ointment 1 applic topical TID 7 days #15 06/23/23 grams Allergies Allergy/AdvReac Type Severity Reaction Status Date / Time codeine Allergy Unknown Unknown Verified 01/13/23 10:51 allergy reaction [facility] Disclaimer: The information contained in this section may have been updated after the patient was seen, as this information can be updated by other users. Medical History Abnormal EKG Arthritis Atrial fibrillation HLD (hyperlipidemia) HTN (hypertension) On amiodarone therapy T2DM (type 2 diabetes mellitus) Surgical History Hx of tonsillectomy Family History (Reviewed 01/13/23 @ 10:38 by Antonette Baer
[2023-06-23 17:52] VITALS: BP 151/86; PULSE 69; RESP 20; TEMP 36.7; O2SAT 98
== END 2023-06-23 17:53 | disposition home or self-care (01) ==
PROVIDERS: Emergency Provider Emergency Medicine; PCP Internal Medicine
DX: S61.012A Laceration without foreign body of left thumb without damage to nail, initial encounter (principal); E11.9 Type 2 diabetes mellitus without complications; I10 Essential (primary) hypertension; E78.5 Hyperlipidemia, unspecified; Z79.84 Long term (current) use of oral hypoglycemic drugs; W26.0XXA Contact with knife, initial encounter; Z23 Encounter for immunization
CPT/HCPCS: 90715; 96372; 99204; 99212; G0463

== ENCOUNTER 2024-07-09 10:36 | Outpatient (CLI) | payer OTHER, SELFPAY ==
--- NOTE | 2024-07-09 10:45 | XR_ITS ---
FINAL REPORT CLINICAL HISTORY: right ankle pain COMPARISON: 01/13/2023 FINDINGS: LEFT ANKLE: Three views of the left ankle were obtained. There is no acute fracture or dislocation. Postoperative changes are present in the distal tibia and fibula, as well as in the medial and lateral malleoli. Mild degenerative change is noted. There are chronic calcifications both medially and laterally consistent with small bone fragments. A plantar calcaneal spur is present. Medial and lateral soft tissue swelling is present as well. IMPRESSION: Postoperative changes are present as described, with chronic calcifications both medial and lateral to the ankle joint, and mild degenerative change. A plantar calcaneal spur is present. Reviewed, Interpreted and Dictated by Alfredito Trammell III, MD Transcribed by Kelley Rosas Authenticated and . [facility]
== END 2024-07-09 23:59 | disposition home or self-care (01) ==
LOC: RAD 10:40
PROVIDERS: PCP Internal Medicine; Visit Provider Podiatrist
DX: M19.171 Post-traumatic osteoarthritis, right ankle and foot (principal); M25.371 Other instability, right ankle
CPT/HCPCS: 73610

== ENCOUNTER 2025-01-03 08:31 | Outpatient (CLI) | payer OTHER, SELFPAY ==
--- NOTE | 2025-01-03 08:36 | XR_ITS ---
FINAL REPORT CLINICAL HISTORY: ankle pain..surgery 4 years ago..f/u for workers comp COMPARISON: 07/09/2024 FINDINGS: Three views of the right ankle show extensive postoperative changes of the tibia and fibula. There are mild degenerative changes in the ankle joint. No acute fracture is seen. There is no widening of the ankle mortise or syndesmosis. Calcaneal spurring is present. IMPRESSION: Stable exam. Reviewed, Interpreted and Dictated by Alessandra Haas MD Transcribed by Janki Harvey Authenticated and [facility]
== END 2025-01-03 23:59 | disposition home or self-care (01) ==
LOC: RAD 08:33
PROVIDERS: PCP Internal Medicine; Visit Provider Podiatrist
DX: M25.371 Other instability, right ankle (principal); M19.171 Post-traumatic osteoarthritis, right ankle and foot
CPT/HCPCS: 73610